=== PATIENT | female | born 1995 | race Caucasian/White ===

== ENCOUNTER 2021-01-10 12:55 | Emergency (ER) | payer OTHER, SELFPAY ==
[2021-01-10 13:26] VITALS: BP 118/69; PULSE 80; RESP 16; TEMP 37; O2SAT 100
[2021-01-10] MEDS: SODIUM CHLORIDE 0.9% 1,000 ML 1000 ML IV (16:13)
[2021-01-10 16:16] LABS: Add Manual Diff / Slide Review NO; Basophils Absolute Auto 0 /uL (0-100); Basophils Percent Auto 0.2 % (0-2); Eosinophils Absolute Auto 100 /uL (0-450); Eosinophils Percent Auto 0.8 % (2-4); Hematocrit 37.8 % (36-46); Hemoglobin 12.5 g/dL (12.0-16.0); Lymphocytes Absolute Auto 1600 /uL (1100-4500); Lymphocytes Percent Auto 19.9 % (25-40); Mean Corpuscular HGB Conc 33.1 % (30-36); Mean Corpuscular Hemoglobin 29.7 PG (26-34); Mean Corpuscular Volume 89.8 fL (80-100); Monocytes Absolute Auto 600 /uL (0-900); Monocytes Percent Auto 7.9 % (3-14); Neutrophils Absolute Auto 5700 /uL (1500-7000); Neutrophils Percent Auto 71.2 % (50-75); Platelet Count 157 X10^3/uL (150-400); Red Blood Cell Count 4.21 X10^6/uL (4.0-5.2); Red Cell Distribution Width 12.9 % (11.6-14.8)
[2021-01-10 16:28] LABS: Alanine Aminotransferase 13 IU/L (<35); Albumin Globulin Ratio 1.4 (1.0-2.8); Alkaline Phosphatase 45 U/L (38-126); Aspartate Aminotransferase 26 IU/L (14-36); Bilirubin Total 0.2 mg/dL (0.2-1.3); Blood Urea Nitrogen 8 mg/dL (7-17); Calcium 8.6 mg/dL (8.4-10.2); Carbon Dioxide 26 mmol/L (22-32); Chloride 103 mmol/L (98-107); Estimated Glomerular Filt Rate > 60.0 mL/min (>60); Globulin 2.8 g/dL (1.7-4.1); Glucose 93 mg/dL (70-100); HEMOLYSIS < 15 (0-50); Lipase 128 U/L (23-300); Sodium 136 mmol/L (137-145); Total Protein 6.8 g/dL (6.3-8.2)
--- NOTE | 2021-01-10 17:07 | ED_ITS ---
HPI - Nausea/Vomiting/Diarrhea General Chief complaint: Nausea/Vomiting/Diarrhea Stated complaint: 9 Wks Preg, Can't Keep Food Down Time Seen by Provider: 01/10/21 14:08 Source: patient Mode of arrival: Ambulatory Limitations: no limitations History of Present Illness HPI Narrative: This is a 25-year-old female comes emergency department complaint of nausea and vomiting and diarrhea after she eats food. Patient states she is 9 weeks . She has had 6 positive test at home as well as a positive test at [facility]. Patient has not had any additional care thus far. Patient denies any medical issues. She was on omeprazole regularly but her prescription ran out and she has not refilled it. She has had reflux in the past and now that she is off her medication this seems worse as well. Patient is not taking any other regular medications. No prior surgeries. No allergies to medications. No tobacco, alcohol or illicit. Patient notes she has felt nauseated she occasionally has vomiting but not constantly. It is worse in the evenings. Patient notes that she has diarrhea immediately after eating she has not had any black or bloody stools. She denies any abdominal p ain, pelvic pain or cramping. No vaginal bleeding or discharge. No dysuria sense of urgency. She has had some mild frequency. Related Data Home Medications Medication Instructions Recorded Confirmed 139-iron 33 mg-folic ac 1 pkg PO DAILY 01/10/21 01/10/21 800 mcg tablet and dha 350 mg capsule ([facility] ) Previous Rx's Medication Instructions Recorded cimetidine 200 mg tablet 200 mg PO .qday #30 tab 01/10/21 ondansetron 4 mg disintegrating 4 mg PO Q6H PRN #10 tab 01/10/21 tablet Allergies Allergy/AdvReac Type Severity Reaction Status Date / Time amoxicillin Allergy Severe Anaphylaxis Verified 01/10/21 13:30 Penicillins Allergy Severe Anaphylaxis Verified 01/10/21 13:30 Review of Systems Review of Systems ROS Unobtainable: All systems reviewed & are unremarkable except as noted in HPI and below Patient History Social History Smoking Status: Former smoker Smoking Status: Former smoker alcohol intake frequency: 0-2 drinks per day Substance Use Type: does not use Exam Narrative Exam Narrative: GENERAL: Alert and oriented x three, Well-nourished female in mild distress. HEENT: Head normocephalic, atraumatic, EOMI, pupils reactive, face symmetric, moist mucous membranes NECK: Supple, full range of motion CARDIOVASCULAR: Regular rate and rhythm without murmurs, rubs or gallops. RESPIRATORY: Breath sounds equal bilaterally, no wheezes rales or rhonchi. ABDOMEN: Soft, nontender. Normoactive bowel sounds all 4 quadrants. No guarding or rebound, rigidity, no mass. Nondistended. : No CVA tenderness EXTREMITIES: Normal range of motion, no clubbing or edema. Neurovascularly intact NEUROLOGICAL: Cranial nerves II through XII grossly intact. Moving all extremities SKIN: Warm, dry, no petechiae, no rashes or lesions. Initial Vital Signs Initial Vital Signs: Vital Signs Temperature 98.6 F 01/10/21 13:26 Pulse Rate 80 01/10/21 13:26 Respiratory Rate 16 01/10/21 13:26 Blood Pressure 118/69 01/10/21 13:26 Pulse Oximetry 100 01/10/21 13:26 Course Orders Ordered: ED Orders 01/10/21 15:56 Complete Blood Count AUTO DIFF Stat Comprehensive Metabolic Panel Stat HCG Quantitative /Beta subunit Stat Lipase Stat Discontinued Medications Sodium Chloride (Normal Saline 0.9%) 1,000 mls @ 1,000 mls/hr IV BOLUS ONE Stop: 01/10/21 14:31 Last Infusion: 01/10/21 17:47 Dose: 0 mls/hr Documented by: Admin: 01/10/21 16:13 Dose: 1,000 mls/hr Documented by: SHONDA Ondansetron HCl (Ondansetron 4 Mg/2 Ml Inj) 4 mg IV NOW ONE Stop: 01/10/21 13:33 Last Admin: 01/10/21 16:11 Dose: Not Given Documented by: SHONDA Vital Signs Vital signs: Vital Signs - 8 hr 01/10/21 13:26 01/10/21 17:39 01/10/21 17:51 Temperature 98.6 F Pulse Rate 80 60 60 Respiratory Rate 16 16 18 Blood Pressure 118/69 99/56 L 98/57 L Pulse Oximetry 100 100 100 MDM - Nausea/Vomiting/Diarrhea Lab Data Result diagrams: 01/10/21 15:56 01/10/21 15:56 Labs: Lab Results 01/10/21 01/10/21 01/10/21 Range/Units 15:56 15:56 15:56 WBC 8.0 (4.5-11.0) X10^3/uL RBC 4.21 (4.0-5.2) X10^6/uL Hgb 12.5 (12.0-16.0) g/dL Hct 37.8 (36-46) % MCV 89.8 (80-100) fL MCH 29.7 (26-34) PG MCHC 33.1 (30-36) % RDW 12.9 (11.6-14.8) % Plt Count 157 (150-400) X10^3/uL Neut % (Auto) 71.2 (50-75) % Lymph % (Auto) 19.9 L (25-40) % [place] % (Auto) 7.9 (3-14) % Eos % (Auto) 0.8 L (2-4) % Baso % (Auto) 0.2 (0-2) % Neut # (Auto) 5700 (6094-5529) /uL Lymph # (Auto) 1600 (8524-3701) /uL [place] # (Auto) 600 (0-900) /uL Eos # (Auto) 100 (0-450) /uL Baso # (Auto) 0 (0-100) /uL Sodium 136 L (137-145) mmol/L Potassium 4.0 (3.4-5.1) mmol/L Chloride 103 (98-107) mmol/L Carbon Dioxide 26 (22-32) mmol/L BUN 8 (7-17) mg/dL Creatinine 0.42 L (0.52-1.04) mg/dL Estimated GFR > 60.0 (>60) mL/min BUN/Creatinine Ratio 19.0 (6-22) Glucose 93 (70-100) mg/dL Calcium 8.6 (8.4-10.2) mg/dL Total Bilirubin 0.2 (0.2-1.3) mg/dL AST 26 (14-36) IU/L ALT 13 (<35) IU/L Alkaline Phosphatase 45 (38-126) U/L Total Protein 6.8 (6.3-8.2) g/dL Albumin 4.0 (3.5-5.0) g/dL Globulin 2.8 (1.7-4.1) g/dL Albumin/Globulin Ratio 1.4 (1.0-2.8) Lipase 128 (23-300) U/L HCG, Quant [id number] mIU/mL Urine Dip Bedside Urine Glucose Negative Bedside Urine Bilirubin - Negative Bedside Urine Ketone - Negative Urine Specific [place] 1.010 Bedside Urine Occult Blood - Negative Bedside Urine pH 6.0 Bedside Urine Protein - Negative Bedside Urine Urobilinogen - Negative Bedside Urine Nitrite - Negative Bedside Urine Leukocytes - Negative Esterase MDM Narrative Medical decision making narrative: This is a 25-year-old with symptoms consistent with morning sickness. Patient's diarrhea seemed to occur almost immediately after eating. She has not had a cholecystectomy she has not had symptoms similar to this until she was . This might be hormonally related. She does not have any abdominal pain. She has any black or bloody stools. At this time I would image her her vitals are appropriate. Discussed with patient she did stop her omeprazole and this seems to be causing her current of some of her symptoms as well as her heartburn. We did check categories and cimetidine appears to be a more appropriate choice for her. Also discussed she can try carl, vitamin B6 [id number] and 0 days to try and if this is an adequate. Patient I discussed return precautions. She is feeling better after fluids. Her labs are reassuring. Her he hCG is cons istent with her . Urine does not show any signs of infection or other changes. Plan for patient to follow up with her care provider. Discharge Plan Departure Patient Disposition: Home Clinical Impression: Nausea and vomiting in prior to 22 weeks gestation Activity Restrictions/Additional Instructions: Follow up with your physician for your care in the next week. You may take Zofran 1 tablet as needed for nausea. discussed with your physician but he can try cimetidine for your 1 reflux. Tums are also safe during . Try small meals when you are less nauseated. Prescription to [facility]. Please return for fevers, persistent vomiting, lightheadedness or passing out, black or bloody stools, no abdominal pain, vaginal bleeding or other new or concerning symptoms. Prescriptions: New cimetidine 200 mg tablet 200 mg PO .qday Qty: 30 RF: 0 ondansetron 4 mg tablet,disintegrating 4 mg PO Q6H PRN (Reason: nausea and vomiting) Qty: 10 RF: 0 No Action Brainstrong 33 mg iron- 800 mcg-350 mg Combo Pack 1 pkg PO DAILY RF: 0
[2021-01-10 17:09] LABS: HCG Quantitative /Beta subunit 126500 mIU/mL
[2021-01-10 17:39] VITALS: BP 99/56; PULSE 60; RESP 16; O2SAT 100
[2021-01-10 17:51] VITALS: BP 98/57; PULSE 60; RESP 18; O2SAT 100
== END 2021-01-10 17:58 | disposition home or self-care (01) ==
PROVIDERS: Emergency Provider Emergency Medicine
DX: O21.9 Vomiting of pregnancy, unspecified (principal); O26.891 Other specified pregnancy related conditions, first trimester; R19.7 Diarrhea, unspecified; Z3A.09 9 weeks gestation of pregnancy
CPT/HCPCS: 36415; 80053; 81003; 83690; 84702; 85025; 96360; 96361; 99284

== ENCOUNTER → 2021-02-28 13:14 | Outpatient (CLI) | payer OTHER, SELFPAY ==
[2021-02-28 13:55] LABS: Add Manual Diff / Slide Review NO; Basophils Absolute Auto 0 /uL (0-100); Basophils Percent Auto 0.4 % (0-2); Eosinophils Absolute Auto 100 /uL (0-450); Eosinophils Percent Auto 0.6 % (2-4); Hematocrit 35.5 % (36-46); Hemoglobin 11.9 g/dL (12.0-16.0); Lymphocytes Absolute Auto 1400 /uL (1100-4500); Lymphocytes Percent Auto 14.8 % (25-40); Mean Corpuscular HGB Conc 33.7 % (30-36); Mean Corpuscular Hemoglobin 30.2 PG (26-34); Mean Corpuscular Volume 89.8 fL (80-100); Monocytes Absolute Auto 500 /uL (0-900); Monocytes Percent Auto 5.3 % (3-14); Neutrophils Absolute Auto 7700 /uL (1500-7000); Neutrophils Percent Auto 78.9 % (50-75); Platelet Count 133 X10^3/uL (150-400); Red Blood Cell Count 3.95 X10^6/uL (4.0-5.2); Red Cell Distribution Width 13.3 % (11.6-14.8); White Blood Cell Count 9.8 X10^3/uL (4.5-11.0)
[2021-02-28 13:59] LABS: Appearance Urine UA SL CLOUDY; Bilirubin Urine UA NEGATIVE (NEGATIVE); Color Urine UA YELLOW; Glucose Urine UA NEGATIVE (Negative); Ketones Urine UA NEGATIVE (NEGATIVE); Leukocyte Esterase Urine UA NEGATIVE (NEGATIVE); Nitrite Urine UA NEGATIVE (Negative); Occult Blood Urine UA NEGATIVE (Negative); Protein Urine UA NEGATIVE (Negative); Specific Gravity Urine UA 1.015 (1.000-1.035); Urobilinogen Urine UA 0.2 E.U./dL (0.2)
[2021-02-28 14:06] LABS: pH Urine UA 6.5 (4.5-8.0)
[2021-03-01 05:36] LABS: RPR Screen Non Reactive (Non Reactive)
[2021-03-01 09:38] LABS: Varicella IgG Antibody 403 index (Immune >165)
[2021-03-03 15:37] LABS: Hepatitis B Surface Antigen NEGATIVE s/c (NEGATIVE); Rubella Antibody IgG 11.1 IU/mL (>15)
[2021-03-03 15:56] LABS: HIV 1 & 2 Ab/Ag 4th Gen Combo NEGATIVE (NEGATIVE); Hep C Virus Ab w/Reflex Quant NEGATIVE s/c (NEGATIVE)
[2021-03-03 21:07] LABS: AFP, Serum 33.7 ng/mL (.); Calc Gestational Age Ultrasound (.); Estriol, Free 1.07 ng/mL (.); Inhibin A, MoM 0.51 (.); Maternal Ethnicity Caucasian (.); Maternal Weight 133 lbs (.); Number of Fetuses No (.); OSBR Risk 1 IN 10000 (.); Results Report (.); Test Results *Screen Negative* (.); hCG, MoM 1.41 (.); hCG, Serum 35224 mIU/mL (.)
[2021-03-06 08:21] LABS: CF Result NEGATIVE
== END ==
PROVIDERS: Referring Provider Family Medicine; Visit Provider Family Medicine
DX: Z34.81 Encounter for supervision of other normal pregnancy, first trimester (principal); Z13.228 Encounter for screening for other metabolic disorders; Z3A.16 16 weeks gestation of pregnancy
CPT/HCPCS: 36415; 80055; 81003; 81223; 82105; 82677; 84702; 86336; 86787; 86803; 86850; 86900; 86901; 87086; 87389

== ENCOUNTER → 2021-03-26 10:32 | Outpatient (CLI) | payer OTHER, SELFPAY ==
--- NOTE | 2021-03-26 10:35 | DI.US.S_ITS ---
PROCEDURE: US OB >= 14 WEEKS FETUS INDICATIONS: ANATOMY OUTSIDE/PRIOR DATING DATA: Last menstrual period (LMP): 11/06/2020 . LMP-based estimated date of delivery (MALIA): 08/13/2021 . First dating scan (date and location): 03/26/2021 . Estimated date of delivery (MALIA) from first dating scan: 08/15/2021 . TECHNIQUE: Real-time scanning was performed of the fetus, with image documentation and biometric measurements. Endovaginal scanning: No COMPARISON: None. FINDINGS: General: A single living intrauterine gestation is present. Presentation: Vertex Placenta: Placental position is anterior , without previa. Lower placental edge 2 cm or less from internal cervical os qualifies as low lying placenta. Amniotic fluid index: 15.6 cm, normal range is 5-24 cm. heart rate: 153 beats per minute. Maternal cervical canal: 3.9 cm long. Normal lower limit is 2.5 cm. biometrics: Biparietal diameter: 47 mm; 20 weeks 0 days Head circumference: 170 mm; 19 weeks 4 days Abdominal circumference: 146 mm; 20 weeks 0 days Femur length: 29 mm; 19 weeks 0 days Estimated gestational age from initial scan: not applicable. Composite gestational age from present scan: 19 weeks 5 days Estimated weight and percentile: 299 g Measurement variability for biometric dating: +/- 7 days from 14 weeks to 15 weeks 6 days gestation, +/- 10 days from 16 weeks to 21 weeks 6 days gestation, +/- 2 weeks from 22 weeks to 27 weeks 6 days gestation, +/- 3 weeks for 28 weeks gestation or later. weight reference: 4500 g or EFW >90/95% is considered macrosomia or large for gestational age. EFW <10% is small for gestational age. EFW 5% or less is considered intra-uterine growth restriction. Anatomic survey: Neuro: Ventricles are non-dilated at less than 10 mm. Cisterna magna is normal at 3-11 mm. Cerebellum is normal in size and morphology. Nuchal skin fold: Normal at less than 6 mm between 14-21 weeks gestational age. Face: Nose and lips, facial profile are normal. Spine: No evidence for spina bifida. Heart: 4-chambered heart is present, with normal ventricular outflow tracts. Diaphragm: Diaphragm is intact. Stomach: Left-sided stomach is present. Kidneys: No hydronephrosis. Normal is less than 5 mm in 2nd trimester, less than 7 mm in 3rd trimester. Cord: 3-vessel cord has orthotopic insertion. Bladder: Normal in size. Extremities: All 4 extremities identified. IMPRESSION: 1. Single living intrauterine gestation. 2. Normal survey of anatomy. Dictated by: Tiara Romero M.D. on 03/26/2021 at 12:30 Approved by: Tiara Romero M.D. on 03/26/2021 at 15:56
== END ==
PROVIDERS: Referring Provider Family Medicine; Visit Provider Family Medicine
DX: Z34.90 Encounter for supervision of normal pregnancy, unspecified, unspecified trimester (principal); Z3A.20 20 weeks gestation of pregnancy
CPT/HCPCS: 76811

== ENCOUNTER 2021-05-10 14:58 | Emergency (ER) | payer OTHER, SELFPAY ==
[2021-05-10 15:06] VITALS: BP 136/65; PULSE 89; RESP 16; TEMP 36.4; O2SAT 99; BMI 26.2
--- NOTE | 2021-05-10 15:35 | ED.NAVMDI ---
HPI - Nausea/Vomiting/Diarrhea General Chief complaint: Abdominal Pain Stated complaint: havent been able to keep food in since yesterday Time Seen by Provider: 05/10/21 15:32 Source: patient Mode of arrival: Ambulatory History of Present Illness HPI Narrative: The patient is currently 26 weeks . She developed diarrhea yesterday. Diarrhea persists. She has no nausea or vomiting. She denies abdominal cramping. She denies fever chills. She has no urinary complaints. She is concerned about decreased motion. She has no vaginal bleeding, no contraction pains. She ate out 2 days ago, perhaps the reason for the diarrhea. She has not been around others with similar medical problems. She has no chronic GI or issues. Related Data Home Medications Medication Instructions Recorded Confirmed 139-iron 33 mg-folic ac 1 pkg PO DAILY 01/10/21 01/10/21 800 mcg tablet and dha 350 mg capsule ([facility] ) Previous Rx's Medication Instructions Recorded cimetidine 200 mg tablet 200 mg PO .qday #30 tab 01/10/21 ondansetron 4 mg disintegrating 4 mg PO Q6H PRN #10 tab 01/10/21 tablet Allergies Allergy/AdvReac Type Severity Reaction Status Date / Time amoxicillin Allergy Severe Anaphylaxis Verified 05/10/21 15:08 Penicillins Allergy Severe Anaphylaxis Verified 05/10/21 15:08 Review of Systems Constitutional Constitutional: Reports as per HPI, Denies chills, Denies fever(s) and Denies headache(s) ENT Ears, Nose, Mouth, and Throat: Denies dizziness and Denies headache(s) Cardiovascular Cardiovascular: Denies chest pain, Denies rapid heart rate and Denies dyspnea Respiratory Respiratory: Denies chest congestion, Denies cough and Denies dyspnea Gastrointestinal Gastrointestinal: Reports as per HPI Genitourinary Genitourinary: Denies dysuria and Denies urinary urgency Comments: No vaginal bleeding. Musculoskeletal Comments: No lower extremity edema. Neurologic Neurologic: Denies confusion, Denies dizziness and Denies headache(s) Psychiatric Psychiatric: Denies confusion Patient History Medical History Anxiety (~2017) Chronic GERD (~2010) Frequent headaches (~12/2020) Hemorrhoid (~2018) Surgical History Anesthesia H/O hemorrhoidectomy (~06/2019) History of colonoscopy (~08/2019) History of esophagogastroduodenoscopy (EGD) (~08/2019) [place] teeth extracted (~2017) Family History Father No problems noted. Mother Breast cancer Cancer Grandfather No problems noted. Grandmother Family estrangement Grandfather No problems noted. Grandmother No problems noted. Sister No problems noted. Social History marital status: household members: spouse lives independently: Yes pets and animals: Yes (Dog X 1) education level: college (BA in [employer] and [employer]) occupational status: unemployed current occupational exposures/hazards: No special samson needs: No Smoking Status: Former smoker second hand exposure: No alcohol intake: former (pre- : 0-2 drinks/day) substance use type: does not use Type(s) of exercise: regular exercise frequency: 3-4 times per week Smoking Status: Former smoker alcohol intake frequency: 0-2 drinks per day Substance Use Type: does not use Exam Initial Vital Signs Initial Vital Signs: Vital Signs Temperature 97.5 F L 05/10/21 15:06 Pulse Rate 89 05/10/21 15:06 Respiratory Rate 16 05/10/21 15:06 Blood Pressure 136/65 05/10/21 15:06 Pulse Oximetry 99 05/10/21 15:06 Const General: cooperative, healthy appearing and comfortable [facility] Head: normal to inspection, normocephalic and atraumatic Mouth: oral mucosae normal Throat: posterior oropharynx normal Resp Auscultation: clear to auscultation bilaterally Cardio Rate: regular rate Rhythm: regular rhythm Heart Sounds: S1 normal, S2 normal and no murmurs GI Palpation: soft and No tender Auscultation: normal bowel sounds Other: Gravid. Uterus is consistent with 26 weeks, and nontender. motion is detected with palpation. FHT 147. Back/Spine/Pelvis Back: No CVA tenderness Course Course Course Narrative: The patient has received IV hydration. Her labs are reassuring. She is hydrated. heart tones are normal. Orders Ordered: ED Orders 05/10/21 15:44 Complete Blood Count AUTO DIFF Stat Comprehensive Metabolic Panel Stat Stool Culture Stat 05/10/21 15:45 Urinalysis and Microscopic Stat Discontinued Medications Sodium Chloride (Normal Saline 0.9%) 1,000 mls @ 1,000 mls/hr IV BOLUS ONE Stop: 05/10/21 16:43 Last Admin: 05/10/21 15:58 Dose: 1,000 mls/hr Documented by: Vital Signs Vital signs: Vital Signs - 8 hr 05/10/21 15:06 Temperature 97.5 F L Pulse Rate 89 Respiratory Rate 16 Blood Pressure 136/65 Pulse Oximetry 99 MDM - Nausea/Vomiting/Diarrhea Lab Data Result diagrams: 05/10/21 15:50 05/10/21 15:50 Labs: Lab Results 05/10/21 05/10/21 05/10/21 Range/Units 15:45 15:50 15:50 WBC 7.6 (4.5-11.0) X10^3/uL RBC 3.99 L (4.0-5.2) X10^6/uL Hgb 12.0 (12.0-16.0) g/dL Hct 35.9 L (36-46) % MCV 90.0 (80-100) fL MCH 30.2 (26-34) PG MCHC 33.6 (30-36) % RDW 12.6 (11.6-14.8) % Plt Count 160 (150-400) X10^3/uL Neut % (Auto) 72.4 (50-75) % Lymph % (Auto) 16.9 L (25-40) % [place] % (Auto) 9.6 (3-14) % Eos % (Auto) 1.0 L (2-4) % Baso % (Auto) 0.1 (0-2) % Neut # (Auto) 5500 (4931-8350) /uL Lymph # (Auto) 1300 (0741-2804) /uL [place] # (Auto) 700 (0-900) /uL Eos # (Auto) 100 (0-450) /uL Baso # (Auto) 0 (0-100) /uL Sodium 136 L (137-145) mmol/L Potassium 4.2 (3.4-5.1) mmol/L Chloride 103 (98-107) mmol/L Carbon Dioxide 26 (22-32) mmol/L BUN 6 L (7-17) mg/dL Creatinine 0.55 (0.52-1.04) mg/dL Estimated GFR > 60.0 (>60) mL/min BUN/Creatinine Ratio 10.9 (6-22) Glucose 85 (70-100) mg/dL Calcium 8.5 (8.4-10.2) mg/dL Total Bilirubin 0.3 (0.2-1.3) mg/dL AST 29 (14-36) IU/L ALT 20 (<35) IU/L Alkaline Phosphatase 65 (38-126) U/L Total Protein 6.9 (6.3-8.2) g/dL Albumin 4.0 (3.5-5.0) g/dL Globulin 2.9 (1.7-4.1) g/dL Albumin/Globulin Ratio 1.4 (1.0-2.8) Urine Color Yellow Urine Appearance Clear Urine pH 7.0 (4.5-8.0) Ur Specific [place] 1.015 (1.000-1.035) Urine Protein Negative (Negative) Urine Glucose (UA) Negative (Negative) g/dL Urine Ketones Negative (NEGATIVE) Urine Occult Blood Negative (Negative) Urine Nitrate Negative (Negative) Urine Bilirubin Negative (NEGATIVE) Urine Urobilinogen 0.2 (0.2) E.U./dL Ur Leukocyte Esterase Negative (NEGATIVE) Urine RBC 0-1/hpf (0-5/HPF) Urine WBC 5-10/hpf H (0-5/HPF) Ur Squamous Epith Cells 10-30 /hpf H (0-5/HPF) Urine Bacteria Many (>30) H (None) Ur Culture Indicated? Cult not indicated Discharge Plan Departure Patient Disposition: Home Clinical Impression: Diarrhea Qualifiers: Diarrhea type: unspecified type Qualified Code(s): R19.7 - Diarrhea, unspecified Qualifiers: Weeks of gestation: 26 weeks Qualified Code(s): Z3A.26 - 26 weeks gestation of Instructions: Diarrhea Activity Restrictions/Additional Instructions: Your baby is doing well. For the diarrhea, be sure drinking plenty of fluids. You should be on a bland diet. Expect the diarrhea to resolve. If not improved within 72 hours, follow-up with your doctor or return here. Prescriptions: No Action Brainstrong 33 mg iron- 800 mcg-350 mg Combo Pack 1 pkg PO DAILY RF: 0 cimetidine 200 mg tablet 200 mg PO .qday Qty: 30 RF: 0 ondansetron 4 mg tablet,disintegrating 4 mg PO Q6H PRN (Reason: nausea and vomiting) Qty: 10 RF: 0 Referrals: Miscellaneous,Doctor, MD [Primary Care Provider] -
[2021-05-10] MEDS: SODIUM CHLORIDE 0.9% 1,000 ML 1000 ML IV (15:58)
[2021-05-10 16:08] LABS: Appearance Urine UA CLEAR; Bilirubin Urine UA NEGATIVE (NEGATIVE); Color Urine UA YELLOW; Glucose Urine UA NEGATIVE (Negative); Ketones Urine UA NEGATIVE (NEGATIVE); Leukocyte Esterase Urine UA NEGATIVE (NEGATIVE); Nitrite Urine UA NEGATIVE (Negative); Occult Blood Urine UA NEGATIVE (Negative); Protein Urine UA NEGATIVE (Negative); Specific Gravity Urine UA 1.015 (1.000-1.035); Urobilinogen Urine UA 0.2 E.U./dL (0.2)
[2021-05-10 16:10] LABS: Add Manual Diff / Slide Review NO; Basophils Absolute Auto 0 /uL (0-100); Basophils Percent Auto 0.1 % (0-2); Eosinophils Absolute Auto 100 /uL (0-450); Hematocrit 35.9 % (36-46); Lymphocytes Absolute Auto 1300 /uL (1100-4500); Lymphocytes Percent Auto 16.9 % (25-40); Mean Corpuscular HGB Conc 33.6 % (30-36); Mean Corpuscular Hemoglobin 30.2 PG (26-34); Monocytes Absolute Auto 700 /uL (0-900); Monocytes Percent Auto 9.6 % (3-14); Neutrophils Absolute Auto 5500 /uL (1500-7000); Neutrophils Percent Auto 72.4 % (50-75); Platelet Count 160 X10^3/uL (150-400); Red Blood Cell Count 3.99 X10^6/uL (4.0-5.2); Red Cell Distribution Width 12.6 % (11.6-14.8); White Blood Cell Count 7.6 X10^3/uL (4.5-11.0)
[2021-05-10 16:17] LABS: Alanine Aminotransferase 20 IU/L (<35); Albumin Globulin Ratio 1.4 (1.0-2.8); Alkaline Phosphatase 65 U/L (38-126); Aspartate Aminotransferase 29 IU/L (14-36); BUN Creatinine Ratio 10.9 (6-22); Bilirubin Total 0.3 mg/dL (0.2-1.3); Blood Urea Nitrogen 6 mg/dL (7-17); Calcium 8.5 mg/dL (8.4-10.2); Carbon Dioxide 26 mmol/L (22-32); Chloride 103 mmol/L (98-107); Estimated Glomerular Filt Rate > 60.0 mL/min (>60); Globulin 2.9 g/dL (1.7-4.1); Glucose 85 mg/dL (70-100); HEMOLYSIS < 15 (0-50); Potassium 4.2 mmol/L (3.4-5.1); Sodium 136 mmol/L (137-145); Total Protein 6.9 g/dL (6.3-8.2)
[2021-05-10 16:22] LABS: RBC Urine 0-1/HPF (0-5/HPF); Squamous Epithelial Cell Urine 10-30 /HPF (0-5/HPF); WBC Urine 5-10/HPF (0-5/HPF)
[2021-05-10 16:23] LABS: Bacteria Urine Many (>30); Culture Indicated Urine Cult Not Indicated
[2021-05-10 17:20] VITALS: BP 98/53; PULSE 88; RESP 16; O2SAT 100
== END 2021-05-10 17:21 | disposition home or self-care (01) ==
PROVIDERS: Emergency Provider Emergency Medicine
DX: O26.892 Other specified pregnancy related conditions, second trimester (principal); R19.7 Diarrhea, unspecified; Z3A.26 26 weeks gestation of pregnancy
CPT/HCPCS: 36415; 80053; 81001; 85025; 96360; 99284

== ENCOUNTER → 2021-05-22 10:07 | Outpatient (CLI) | payer OTHER, SELFPAY ==
[2021-05-22 12:56] LABS: Add Manual Diff / Slide Review NO; Basophils Absolute Auto 0 /uL (0-100); Basophils Percent Auto 0.3 % (0-2); Eosinophils Absolute Auto 100 /uL (0-450); Eosinophils Percent Auto 0.7 % (2-4); Hematocrit 32.7 % (36-46); Hemoglobin 10.8 g/dL (12.0-16.0); Lymphocytes Absolute Auto 1200 /uL (1100-4500); Lymphocytes Percent Auto 15.3 % (25-40); Mean Corpuscular HGB Conc 33.2 % (30-36); Mean Corpuscular Hemoglobin 30.1 PG (26-34); Mean Corpuscular Volume 90.6 fL (80-100); Monocytes Absolute Auto 500 /uL (0-900); Monocytes Percent Auto 6.4 % (3-14); Neutrophils Absolute Auto 6200 /uL (1500-7000); Neutrophils Percent Auto 77.3 % (50-75); Platelet Count 133 X10^3/uL (150-400); Red Cell Distribution Width 12.4 % (11.6-14.8)
[2021-05-22 13:19] LABS: GTT (PREG) 1 Hour PP 50gm Dose 148 mg/dL (76-139)
== END ==
PROVIDERS: Referring Provider Family Medicine; Visit Provider Family Medicine
DX: Z34.90 Encounter for supervision of normal pregnancy, unspecified, unspecified trimester (principal)
CPT/HCPCS: 36415; 82950; 85025

== ENCOUNTER → 2021-06-02 08:07 | Outpatient (CLI) | payer OTHER, SELFPAY ==
[2021-06-02 09:37] LABS: Glucose Fasting Gestational 76 mg/dL (76-95)
[2021-06-02 11:33] LABS: Glucose Tol Interp,Gestational INTERPRETATION
[2021-06-02 12:04] LABS: Glucose 1 Hour Gest 171 mg/dL (76-180)
[2021-06-02 12:05] LABS: Glucose 2 Hour Gest 127 mg/dL (76-155)
[2021-06-02 13:15] LABS: Glucose 3 Hour Gest 92 mg/dL (76-140)
== END ==
PROVIDERS: Referring Provider Family Medicine; Visit Provider Family Medicine
DX: R73.09 Other abnormal glucose (principal); Z3A.26 26 weeks gestation of pregnancy
CPT/HCPCS: 36415; 82951; 82952

== ENCOUNTER 2021-06-17 15:28 | Observation (INO) | payer OTHER, SELFPAY ==
[2021-06-17] MEDS: PANTOPRAZOLE DR 20 MG TABLET PO (16:19)
--- NOTE | 2021-06-17 16:52 | DI.US.S_ITS ---
PROCEDURE: US OB TRANSVAGINAL INDICATIONS: cervical length OUTSIDE/PRIOR DATING DATA: Last menstrual period (LMP): 11/06/2020 LMP-based estimated date of delivery (MALIA): 08/23/2021 First dating scan (date and location): 03/26/2021 Estimated date of delivery (MALIA) from first dating scan: 08/15/2021 The calculations are made using the study generated MALIA of 08/15/2021. TECHNIQUE: Real-time scanning was performed of the fetus, with image documentation. COMPARISON: [facility], US, US OB >= 14 WEEKS FETUS, 03/26/2021, 10:46. FINDINGS: A single living intrauterine gestation is present. Presentation: Vertex Placenta: Placental position is anterior, without previa. Amniotic fluid index: 12.5 cm, normal range is 5-24 cm. Single deepest vertical pocket is 4.6 cm. heart rate: 139 beats per minute. Maternal cervical canal: 1.1 cm long. Normal lower limit is 2.5 cm. Estimated gestational age from initial scan: 31 weeks, 4 days. IMPRESSION: 1. Single live intrauterine with fetus in vertex presentation. heart rate is 139 beats per minute. Normal amount of amniotic fluid. 2. Cervix is closed. Short cervical length measures 1.1 cm is seen with suggestion of funneling at internal os. Findings were reported to referring clinician by technical sales advisor at the time of the study. Dictated by: Shawn Killian M.D. on 06/17/2021 at 18:48 Approved by: Shawn Killian M.D. on 06/17/2021 at 18:50
[2021-06-17 17:06] LABS: Appearance Urine UA CLEAR; Bilirubin Urine UA NEGATIVE (NEGATIVE); Color Urine UA YELLOW; Glucose Urine UA NEGATIVE (Negative); Ketones Urine UA NEGATIVE (NEGATIVE); Leukocyte Esterase Urine UA NEGATIVE (NEGATIVE); Nitrite Urine UA NEGATIVE (Negative); Occult Blood Urine UA NEGATIVE (Negative); Protein Urine UA NEGATIVE (Negative); Urobilinogen Urine UA 0.2 E.U./dL (0.2)
[2021-06-17 18:01] LABS: Bacteria Urine Occasional (0-1); RBC Urine None Seen (0-5/HPF); Squamous Epithelial Cell Urine 1-5 /HPF (0-5/HPF); WBC Urine None Seen (0-5/HPF)
[2021-06-17 18:02] LABS: Culture Indicated Urine Cult Not Indicated
[2021-06-17] MEDS: NIFEdipine 10 MG CAPSULE PO ×4 (18:33→19:46)
[2021-06-17] MEDS: BETAMETHASONE 30 MG/5 ML MDV 12 MG IM (18:35)
[2021-06-17 18:49] LABS: Fetal Fibronectin Positive
[2021-06-17] MEDS: LACTATED RINGERS 1,000 ML 1000 ML IV (19:28)
[2021-06-17] MEDS: NIFEdipine 30 MG TAB ER PO (19:47)
[2021-06-17 20:06] LABS: COVID19 -Nasal RAPID Negative (Negative)
[2021-06-17] MEDS: LACTATED RINGERS 1,000 ML 125 ML IV (21:08)
[2021-06-17] MEDS: MAGNESIUM SULFATE 4 GM/100 ML PIGGYBACK IV (21:08)
--- NOTE | 2021-06-17 21:16 | PM.OBHP.IH.1 ---
OB HPI Date/Time Date of admission: 06/17/21 Date Patient Seen: 06/17/21 Time Patient Seen: 20:30 History of Present Condition Chief complaint: NST MALIA Calculator Estimated Delivery Date Method Current WG Current Estimate 08/13/21 Manual 31w 6d Final MALIA - ARIELLA Other Estimates 08/13/21 LMP (Certain) 31w 6d 08/17/21 Ultrasound #1 31w 2d Estimated Gestational Age (weeks): 31w6d : 1 Para: 0 Narrative: Pt is a 25yo at 31w6d who presented with abdominal cramping and tightening. The pt reports that for the past 2 days she has had a constant tightening across her upper abdomen. She has also had intermittent lower abdominal cramping. She thought it was just [place], but it was increasing in frequency and so she decided to be evaluated. She is unable to quantify how often the cramping is. She reports that due to the discomfort, she has not been eating much for the past couple days but has been trying to stay hydrated. Laying down does seem to help the discomfort. She denies any vaginal bleeding, LOF. She is feeling her baby move frequently, although it is slightly more difficult to tell due to the tightening. care: good care, initiated at week # (10) and pounds weight gain (29) Dating criteria OB: LMP confirmed by 1st trimester US Ultrasounds: normal 1st trimester US and normal mid trimester US Obstetrical complications: none Medical complications OB: none Preadmission Labs Last OB Lab Results: Blood Type O Positive 02/28/21 13:21 02/28/21 Antibody Screen Negative 02/28/21 13:21 02/28/21 Hematocrit 32.7 % (36-46) L 05/22/21 11:18 05/22/21 Hemoglobin 10.8 g/dL (12.0-16.0) L 05/22/21 11:18 05/22/21 Hepatitis B Surface Antigen Negative s/c (NEGATIVE) 02/28/21 13:21 02/28/21 Hepatitis C Antibody Negative s/c (NEGATIVE) 02/28/21 13:21 02/28/21 Rubella Antibody 11.1 IU/mL (>15) L 02/28/21 13:21 02/28/21 Varicella-Zoster IgG Antibody 403 index (Immune >165) 02/28/21 13:21 02/28/21 Glucose 1 Hour 148 mg/dL (76-139) H 05/22/21 11:18 05/22/21 Glucose Tolerance Testing: Fasting (76), 1 hr (171), 2 hr (127) and 3 hr (92) -: Urine: negative Genetic Screens: Quad screen: Normal External Labs -: Urine: negative Evaluation Evaluation Baseline heart rate: 150 Variability: Moderate (11-25) monitor accelerations: Present Monitor Decelerations: Absent Contraction Frequency (minutes): 3 Status: Category l Dilation (cm): 2 Effacement (%): 80 station: -2 PFS Medical History Anxiety (~2017) Chronic GERD (~2010) Frequent headaches (~12/2020) Hemorrhoid (~2018) Surgical History Anesthesia H/O hemorrhoidectomy (~06/2019) History of colonoscopy (~08/2019) History of esophagogastroduodenoscopy (EGD) (~08/2019) [place] teeth extracted (~2017) Family History Father No problems noted. Mother Breast cancer Cancer Grandfather No problems noted. Grandmother Family estrangement Grandfather No problems noted. Grandmother No problems noted. Sister No problems noted. Social History marital status: household members: spouse lives independently: Yes pets and animals: Yes (Dog X 1) education level: college (BA in [employer] and [employer]) occupational status: unemployed current occupational exposures/hazards: No special samson needs: No Smoking Status: Never smoker second hand exposure: No alcohol intake: former (pre- : 0-2 drinks/day) substance use type: does not use Type(s) of exercise: regular exercise frequency: 3-4 times per week Meds Home Medications and Allergies Home Medications Medication Instructions Recorded Confirmed Type cimetidine 200 mg tablet 200 mg PO .qday #30 tab 01/10/21 Rx ondansetron 4 mg disintegrating 4 mg PO Q6H PRN #10 tab 01/10/21 Rx tablet 139-iron 33 mg-folic ac 1 pkg PO DAILY 01/10/21 01/10/21 History 800 mcg tablet and dha 350 mg capsule (Brainstron ) breast pump #1 ea 05/28/21 05/28/21 Rx omeprazole 20 mg capsule,delayed 20 mg PO DAILY #90 cap 06/17/21 Rx release Allergies Allergy/AdvReac Type Severity Reaction Status Date / Time amoxicillin Allergy Severe Anaphylaxis Verified 05/10/21 15:08 Penicillins Allergy Severe Anaphylaxis Verified 05/10/21 15:08 OB Exam Narrative Exam Narrative: Gen: NAD, sitting comfortably in bed, appears well CV: RRR, no murmurs Resp: clear to auscultation bilaterally Abd: soft, nontender, gravid Ext: no edema Objective Imaging US: Radiologist's impression: PROCEDURE:? US OB TRANSVAGINAL ? INDICATIONS:? cervical length ? OUTSIDE/PRIOR DATING DATA:? Last menstrual period (LMP):? 11/06/2020 LMP-based estimated date of delivery (MALIA):? 08/23/2021 First dating scan (date and location):? 03/26/2021 Estimated date of delivery (MALIA) from first dating scan:? 08/15/2021 The calculations are made using the study generated MALIA of 08/15/2021. ? TECHNIQUE: Real-time scanning was performed of the fetus, with image documentation.? ? COMPARISON:? [facility], OB >= 14 WEEKS FETUS, 03/26/2021, 10:46. ? FINDINGS:? A single living intrauterine gestation is present.? Presentation:? Vertex Placenta:? Placental position is anterior, without previa.? Amniotic fluid index:? 12.5 cm, normal range is 5-24 cm. Single deepest vertical pocket is 4.6 cm.? ? heart rate:? 139 beats per minute.? Maternal cervical canal:? 1.1 cm long.? Normal lower limit is 2.5 cm.? Estimated gestational age from initial scan:? 31 weeks, 4 days. ? ? IMPRESSION:? 1. Single live intrauterine with fetus in vertex presentation.? heart rate is 139 beats per minute.? Normal amount of amniotic fluid. 2. Cervix is closed.? Short cervical length measures 1.1 cm is seen with suggestion of funneling at internal os. ? Findings were reported to referring clinician by blood bank laboratory technician at the time of the study.? ? ? Dictated by: Shawn Killian M.D. on 06/17/2021 at 18:48 ? ? Labs Labs: Laboratory Results - last 24 hr 06/17/21 06/17/21 06/17/21 16:30 17:10 19:20 Urine Color Yellow Urine Appearance Clear Urine pH 7.0 Ur Specific [place] 1.010 Urine Protein Negative Urine Glucose (UA) Negative Urine Ketones Negative Urine Occult Blood Negative Urine Nitrate Negative Urine Bilirubin Negative Urine Urobilinogen 0.2 Ur Leukocyte Esterase Negative Urine RBC None seen Urine WBC None seen Ur Squamous Epith Cells 1-5 /hpf D Urine Bacteria Occasional (0-1) D Ur Culture Indicated? Cult not indicated SARS-CoV-2 (PCR) Negative Fibronectin Positive H Assessment and Plan Assessment and Plan Assessment and Plan narrative: Pt is a 25yo at 31w6d here with evidence of labor. Cervical length 1.1cm on ultrasound, with suggestion of funneling. Cervical exam from closed to 2cm. The pt is Rh positive, GBS unknown. Her has been otherwise uncomplicated. - Betamethasone given at 18:11 - MgSO4 started due to < 32 weeks. 4g bolus given, followed by continuous at 2g/hr. - Vancomycin initiated for GBS prophylaxis due to unknown status. Pt with anaphylactic penicillin allergy. GBS sent today - pending. - Pt received 4 doses of 10mg PO Nifedipine in addition to 30 mg PO Nifedipine XR - Pt received 1L LR bolus - Pt is COVID negative Discussed case with Dr Lemus at [facility], who accepts pt for transfer. The pt will be transferred via [facility] for a higher level of care, including availability of NICU.
[2021-06-17] MEDS: MAGNESIUM SULFATE 20 GM/500 ML IV.SOLN IV (21:50)
[2021-06-17 21:55] VITALS: BP 119/62
[2021-06-17 22:13] LABS: Basophils Absolute Auto 100 /uL (0-100); Basophils Percent Auto 0.5 % (0-2); Eosinophils Absolute Auto 100 /uL (0-450); Eosinophils Percent Auto 0.7 % (2-4); Hematocrit 38.6 % (36-46); Hemoglobin 12.9 g/dL (12.0-16.0); Lymphocytes Absolute Auto 2000 /uL (1100-4500); Mean Corpuscular HGB Conc 33.5 % (30-36); Mean Corpuscular Hemoglobin 29.8 PG (26-34); Monocytes Absolute Auto 900 /uL (0-900); Monocytes Percent Auto 8.4 % (3-14); Neutrophils Absolute Auto 8100 /uL (1500-7000); Neutrophils Percent Auto 72.4 % (50-75); Platelet Count 172 X10^3/uL (150-400); Red Blood Cell Count 4.34 X10^6/uL (4.0-5.2); Red Cell Distribution Width 12.8 % (11.6-14.8); White Blood Cell Count 11.2 X10^3/uL (4.5-11.0)
[2021-06-17 22:20] LABS: Add Manual Diff / Slide Review SLIDE REVIEW
[2021-06-17] MEDS: VANCOMYCIN 1,500 MG/300 ML PIGGYBACK 200 MG IV (22:40)
[2021-06-17 22:50] LABS: Platelet Morphology Comment NOTE; RBC Morphology Normal Morphology
== END 2021-06-17 23:00 | disposition home or self-care (01) ==
PROVIDERS: Admitting Provider Family Medicine; Referring Provider Family Medicine; Visit Provider Family Medicine
DX: R10.2 Pelvic and perineal pain (principal); Z3A.31 31 weeks gestation of pregnancy; Z20.822 Contact with and (suspected) exposure to COVID-19
CPT/HCPCS: 36415; 59025; 59050; 76815; 76817; 81001; 82731; 85025; 87635; 96360; 96372; 99219; C9803; G0378; G0379; J0702; J3475

== ENCOUNTER 2021-06-26 11:11 | Observation (INO) | payer OTHER, SELFPAY ==
--- NOTE | 2021-06-26 11:24 | P.TNLD_ITS ---
Visit Information Visit Information Date of evaluation: 06/26/21 Primary OB Provider: Socorro Jennings Reason for Evaluation: Yes pre-term labor and Yes rule out labor Comments/Additional reasons for admission: 25yo at 33w1d here with contractions. The pt reports that last night she had abdominal tightening every 4 minutes for around 2.5 hours. She was then able to fall asleep. This morning, the tightening and cramping is more spaced apart, but still occurring. She denies any bleeding or LOF. The pt was hospitalized from 06/18-06/20 for contractions. Cervical length at that time was 1.1cm. She was treated with Nifedipine, and then MgSO4. Her contractions stopped, and her cervix remained unchanged at /-1. She was ultimately discharged home stable. [facility] Medical History Anxiety (~2017) Chronic GERD (~2010) Frequent headaches (~12/2020) Hemorrhoid (~2018) Surgical History Anesthesia H/O hemorrhoidectomy (~06/2019) History of colonoscopy (~08/2019) History of esophagogastroduodenoscopy (EGD) (~08/2019) [place] teeth extracted (~2017) Family History Father No problems noted. Mother Breast cancer Cancer Grandfather No problems noted. Grandmother Family estrangement Grandfather No problems noted. Grandmother No problems noted. Sister No problems noted. 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) occupational status: unemployed current occupational exposures/hazards: No special samson needs: No Smoking Status: Never smoker second hand exposure: No alcohol intake: former (pre- : 0-2 drinks/day) substance use type: does not use Type(s) of exercise: regular exercise frequency: 3-4 times per week Evaluation Evaluation Baseline heart rate: 135 Variability: Moderate (11-25) monitor accelerations: Present Monitor Decelerations: Absent Category of Tracing: Reactive Comments: single contraction on monitoring Diagnosis, Plan/Disposition Final Diagnosis (1) contractions: Status: Acute Plan/Disposition Plan: 25yo at 33w1d here with contractions. Pt recently hospitalized due to labor, which was stopped with Nifedipine and MgSO4. Pt felt more contractions overnight, now tapering off. Did treat with Nifedipine series again today. No longer having any significant contractions, felt by pt or on monitoring. Elected to not stimulate cervix, and no cervical exam today. U/A indicative of possible UTI, due to allergies will tx with Nitrofurantoin. Also discharge with PRN Nifedipine for home use. Discussed strict return precautions. OB Disposition: home
[2021-06-26] MEDS: ONDANSETRON 4 MG ODT SL (11:33)
[2021-06-26] MEDS: NIFEdipine 10 MG CAPSULE PO ×4 (11:57→12:58)
[2021-06-26 12:55] LABS: Appearance Urine UA CLEAR; Bilirubin Urine UA NEGATIVE (NEGATIVE); Color Urine UA YELLOW; Glucose Urine UA NEGATIVE (Negative); Ketones Urine UA NEGATIVE (NEGATIVE); Leukocyte Esterase Urine UA 2+ (NEGATIVE); Nitrite Urine UA NEGATIVE (Negative); Occult Blood Urine UA NEGATIVE (Negative); Protein Urine UA NEGATIVE (Negative); Urobilinogen Urine UA 0.2 E.U./dL (0.2)
[2021-06-26 13:02] LABS: Amorphous Sediment Urine 2+; Bacteria Urine Many (>30); Culture Indicated Urine Specimen Cultured; RBC Urine 0-1/HPF (0-5/HPF); Squamous Epithelial Cell Urine 1-5 /HPF (0-5/HPF); WBC Urine 10-30/HPF (0-5/HPF)
== END 2021-06-26 13:30 | disposition home or self-care (01) ==
PROVIDERS: Admitting Provider Family Medicine; Referring Provider Family Medicine; Visit Provider Family Medicine
DX: O60.03 Preterm labor without delivery, third trimester (principal); Z3A.32 32 weeks gestation of pregnancy
CPT/HCPCS: 59025; 81001; 87086; G0378; G0379

== ENCOUNTER → 2021-07-09 13:35 | Outpatient (CLI) | payer OTHER, SELFPAY ==
[2021-07-10 18:43] LABS: Strep Grp B PCR NEG for Grp B Strep
== END ==
PROVIDERS: Referring Provider Family Medicine; Visit Provider Family Medicine
DX: Z34.83 Encounter for supervision of other normal pregnancy, third trimester (principal); Z3A.35 35 weeks gestation of pregnancy
CPT/HCPCS: 87653

== ENCOUNTER 2021-07-16 14:17 | Outpatient (CLI) | payer OTHER, SELFPAY ==
--- NOTE | 2021-07-16 15:04 | PM.OBTRLD ---
Visit Information Visit Information Date of evaluation: 07/16/21 Primary OB Provider: Socorro eJnnings Reason for Evaluation: Yes rule out labor Comments/Additional reasons for admission: 25yo at 36w0d here for contractions. No vaginal bleeding, LOF. She is feeling her baby move regularly. [facility] Medical History Anxiety (~2017) Chronic GERD (~2010) Frequent headaches (~12/2020) Hemorrhoid (~2018) Surgical History Anesthesia H/O hemorrhoidectomy (~06/2019) History of colonoscopy (~08/2019) History of esophagogastroduodenoscopy (EGD) (~08/2019) [place] teeth extracted (~2017) Family History Father No problems noted. Mother Breast cancer Cancer Grandfather No problems noted. Grandmother Family estrangement Grandfather No problems noted. Grandmother No problems noted. Sister No problems noted. 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 Picking up on monitoring sporadically. Pt without significant cervical change in clinic, despite feeling all night. Suspect discomfort primarily due to very low station. Pt declines Nifedipine. Feels safe for d/c home. Would like to use her heating pad at home. OB Disposition: home
[2021-07-16] MEDS: NIFEdipine 10 MG CAPSULE PO (15:11)
== END 2021-07-16 15:40 | disposition home or self-care (01) ==
LOC: LABOR 15:16 → OB 07-22 07:27
PROVIDERS: Referring Provider Family Medicine; Visit Provider Family Medicine
DX: O47.03 False labor before 37 completed weeks of gestation, third trimester (principal); Z3A.36 36 weeks gestation of pregnancy
CPT/HCPCS: 59025; 59050; G0378; G0379

== ENCOUNTER 2021-07-21 01:47 | Inpatient (IN) | payer OTHER, SELFPAY ==
[2021-07-21] MEDS: LACTATED RINGERS 1,000 ML 100 ML IV (02:30)
[2021-07-21 02:36] LABS: COVID19 -Nasal RAPID Negative (Negative)
[2021-07-21] MEDS: fentaNYL 100 MCG/2 ML INJ (02:40)
[2021-07-21 03:03] LABS: Add Manual Diff / Slide Review NO; Basophils Absolute Auto 0 /uL (0-100); Basophils Percent Auto 0.4 % (0-2); Eosinophils Absolute Auto 100 /uL (0-450); Hematocrit 35.2 % (36-46); Hemoglobin 11.8 g/dL (12.0-16.0); Lymphocytes Absolute Auto 2600 /uL (1100-4500); Lymphocytes Percent Auto 22.1 % (25-40); Mean Corpuscular HGB Conc 33.5 % (30-36); Mean Corpuscular Hemoglobin 29.4 PG (26-34); Mean Corpuscular Volume 87.8 fL (80-100); Monocytes Absolute Auto 900 /uL (0-900); Monocytes Percent Auto 7.9 % (3-14); Neutrophils Absolute Auto 8200 /uL (1500-7000); Neutrophils Percent Auto 68.6 % (50-75); Platelet Count 151 X10^3/uL (150-400); Red Blood Cell Count 4.01 X10^6/uL (4.0-5.2); Red Cell Distribution Width 12.9 % (11.6-14.8)
--- NOTE | 2021-07-21 06:35 | PM.OBHP.IH.1 ---
OB HPI Date/Time Date of admission: 07/21/21 Date Patient Seen: 07/21/21 Time Patient Seen: 06:35 History of Present Condition Chief complaint: L&D MALIA Calculator Estimated Delivery Date Method Current WG Current Estimate 08/13/21 Manual 36w 5d Final MALIA - ARIELLA Other Estimates 08/13/21 LMP (Certain) 36w 5d 08/17/21 Ultrasound #1 36w 1d Estimated Gestational Age (weeks): 36w5d : 1 Para: 0 Narrative: 25yo at 36w5d here with leaking fluid starting around 1am. The pt reports onset of painful contractions shortly after. Mild vaginal spotting. She is feeling her baby move regularly. The pts was complicated by labor at 31w6d. She was on MgSO4, and received betamethasone on 06/17 and 06/18. Her labor was ultimately stopped, and she was discharged home. care: good care, initiated at week # and pounds weight gain Dating criteria OB: LMP confirmed by 1st trimester US Ultrasounds: normal 1st trimester US and normal mid trimester US Obstetrical complications: labor Medical complications OB: none Preadmission Labs Last OB Lab Results: Blood Type O Positive 07/21/21 02:15 07/21/21 Antibody Screen Negative 07/21/21 02:15 07/21/21 Hematocrit 35.2 % (36-46) L 07/21/21 02:15 07/21/21 Hemoglobin 11.8 g/dL (12.0-16.0) L 07/21/21 02:15 07/21/21 Hepatitis B Surface Antigen Negative s/c (NEGATIVE) 02/28/21 13:21 02/28/21 Hepatitis C Antibody Negative s/c (NEGATIVE) 02/28/21 13:21 02/28/21 Rubella Antibody 11.1 IU/mL (>15) L 02/28/21 13:21 02/28/21 Varicella-Zoster IgG Antibody 403 index (Immune >165) 02/28/21 13:21 02/28/21 Glucose 1 Hour 148 mg/dL (76-139) H 05/22/21 11:18 05/22/21 Group B Streptococcus (PCR) Neg for grp b strep 07/09/21 13:35 07/09/21 Glucose Tolerance Testing: Fasting (76), 1 hr (171), 2 hr (127) and 3 hr (92) -: Urine: negative Genetic Screens: Quad screen: Normal External Labs -: Urine: negative Evaluation Evaluation Baseline heart rate: 150 Variability: Moderate (11-25) monitor accelerations: Present Monitor Decelerations: Absent Contraction Frequency (minutes): 3 Status: Category l Dilation (cm): 10 Effacement (%): 100 station: +3 PFSH Medical History Anxiety (~2017) Chronic GERD (~2010) Frequent headaches (~12/2020) Hemorrhoid (~2018) Surgical History Anesthesia H/O hemorrhoidectomy (~06/2019) History of colonoscopy (~08/2019) History of esophagogastroduodenoscopy (EGD) (~08/2019) [place] teeth extracted (~2017) Family History Father No problems noted. Mother Breast cancer Cancer Grandfather No problems noted. Grandmother Family estrangement Grandfather No problems noted. Grandmother No problems noted. Sister No problems noted. 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) occupational status: unemployed current occupational exposures/hazards: No special samson needs: No Smoking Status: Never smoker second hand exposure: No alcohol intake: former (pre- : 0-2 drinks/day) substance use type: does not use Type(s) of exercise: regular exercise frequency: 3-4 times per week Meds Home Medications and Allergies Home Medications Medication Instructions Recorded Confirmed Type cimetidine 200 mg tablet 200 mg PO .qday #30 tab 01/10/21 Rx ondansetron 4 mg disintegrating 4 mg PO Q6H PRN #10 tab 01/10/21 Rx tablet 139-iron 33 mg-folic ac 1 pkg PO DAILY 01/10/21 01/10/21 History 800 mcg tablet and dha 350 mg capsule (Brainstrong ) breast pump #1 ea 05/28/21 05/28/21 Rx omeprazole 20 mg capsule,delayed 20 mg PO DAILY #90 cap 06/17/21 Rx release nitrofurantoin macrocrystal 100 mg 100 mg PO BID #10 cap 06/26/21 Rx capsule nifedipine 10 mg capsule 10 mg PO TID PRN #30 cap 06/30/21 Rx Allergies Allergy/AdvReac Type Severity Reaction Status Date / Time amoxicillin Allergy Severe Anaphylaxis Verified 05/10/21 15:08 Penicillins Allergy Severe Anaphylaxis Verified 05/10/21 15:08 OB Exam Narrative Exam Narrative: Gen: NAD, laying comfortably in bed, appears well CV: RRR, no murmurs Resp: clear to auscultation bilaterally Abd: soft, nontender, gravid Ext: no edema Objective Labs Result Diagrams: 07/21/21 02:15 Labs: Laboratory Results - last 24 hr 07/21/21 07/21/21 07/21/21 02:10 02:15 02:15 WBC 12.0 H RBC 4.01 Hgb 11.8 L Hct 35.2 L MCV 87.8 MCH 29.4 MCHC 33.5 RDW 12.9 Plt Count 151 Neut % (Auto) 68.6 Lymph % (Auto) 22.1 L [place] % (Auto) 7.9 Eos % (Auto) 1.0 L Baso % (Auto) 0.4 Neut # (Auto) 8200 H Lymph # (Auto) 2600 [place] # (Auto) 900 Eos # (Auto) 100 Baso # (Auto) 0 SARS-CoV-2 (PCR) Negative Blood Type O Positive Antibody Screen Negative Assessment and Plan Assessment and Plan Assessment and Plan narrative: 25yo at 36w5d here with SROM in active labor. GBS negative, Rh positive. complicated by labor, did receive betamethasone 06/17 and 06/18. - Expectant management, anticipate - Start pushing now - FHT reassuring - GBS negative, no prophylaxis indicated - Epidural for pain control in place
--- NOTE | 2021-07-21 18:43 | PM.OBPRVD ---
Events: Labor < 37 wks Labor & Delivery Delivery date: 07/21/21 Intrapartal Events: None Cervical ripening method: none Induction method: none Delivery monitor: external FHT Route of delivery: Episiotomy description: None L&D Laceration Description: Perineal - 1st Degree Delivery repair: chromic Estimated blood loss (mL): 400 Anesthesia Type: Epidural Complications: None Narrative: PROCEDURE: at 36w5d presented with SROM in active labor and was admitted to Labor and Delivery. The patient progressed through the 1st stage over 6 hours. Pain was controlled with an epidural. The patient progressed through the 2nd stage over 44 minutes and delivered a viable male with APGARs 6/9 at 7:40am via without complications. Tracing was Category I prior to pushing, and Category II at the end of pushing due to variable decels. The cord was clamped and cut after 5 minutes. The perineum and vagina were inspected with 1st degree perineal laceration repaired with 3-O Chromic. PREPROCEDURE DIAGNOSIS: Intrauterine at 36w5d SROM GBS negative RH positive POSTPROCEDURE DIAGNOSIS: Intrauterine at 36w5d, delivered Same as preprocedure Baby 1: gender: Male Presentation: vertex Position: Left Occiput Posterior Placenta delivery description: Spontaneous Cord Vessel Description: 3 Vessels score (1 min): 6 score (5 min): 9 weight: 6 lb 10.915 oz Plan for aftercare: Routine care
--- NOTE | 2021-07-22 13:21 | P.DS_ITS ---
Discharge Providers Provider Date of admission: 07/21/21 01:47 Discharge Date: 07/22/21 Consults: 07/22/21 09:27 Consult to Sheet Metal Superintendent Routine Comment: Discharge provider: Socorro Jennings MD Summary Hospital Course Date Patient Seen: 07/22/21 Time Patient Seen: 07:45 Diagnoses: Intrauterine at 36w5d SROM GBS negative RH positive Hospital Course: The pt presented in active labor with SROM at home. She received an epidural for pain control. She progressed to complete and had a spontaneous vaginal delivery of a viable baby boy on 04/20/22. A first degree perineal laceration was then repaired. , there were no complications. At the time of discharge she was voiding, ambulating, and passing flatus without difficulty. Her lochia was decreasing appropriately. She was pumping with appropriate milk expression. Her pain was adequately controlled. She will f/u in clinic in 6 weeks. She desires OCPs for contraception. Peripartum Data Delivery Method: Natural Vaginal Laceration Description: Perineal - 1st Degree Episiotomy description: None Procedures: Spontaneous vaginal delivery complications: none 1: Gender: Male Disposition of : home Discharge Diagnosis (1) Spontaneous vaginal delivery: Status: Acute Status at Discharge Cognitive/behavioral status at discharge: oriented Functional status at discharge: independent ambulation Overall status at discharge: patient is progressing back to baseline Time Spent with Patient Time attestation: Total time spent providing and/or coordinating discharge services: Objective Labs Result Diagrams: 07/21/21 02:15 Exam Narrative Exam Narrative: Gen: NAD, sitting comfortably in bed, appears well CV: RRR, no murmurs Resp: clear to auscultation bilaterally Abd: soft, appropriately tender, fundus firm and below the umbilicus, nondistended Ext: no edema Discharge Plan Discharge Plan Patient Disposition: Home Discharge orders & Medications Prescriptions: New acetaminophen 325 mg Tablet 650 mg PO Q6HR PRN (Reason: Pain, Mild (1-3)) Qty: 30 0RF docusate sodium 100 mg Capsule 100 mg PO DAILY Qty: 30 0RF ibuprofen 600 mg Tablet 600 mg PO Q6HR PRN (Reason: Pain, Mild (1-3)) Qty: 30 0RF Continued (DME) breast pump Device See Rx Instructions .ROUTE .MEDSUPPLY Qty: 1 0RF Rx Instructions: As directed omeprazole 20 mg capsule,delayed release(DR/EC) 20 mg PO DAILY Qty: 90 3RF Brainstrong 33 mg iron- 800 mcg-350 mg Combo Pack 1 pkg PO DAILY 0RF cimetidine 200 mg tablet 200 mg PO .qday Qty: 30 0RF Rx Instructions: give at meals and bedtime Discontinued nitrofurantoin macrocrystal 100 mg capsule 100 mg PO BID Qty: 10 0RF Rx Instructions: must administer with a meal/food nifedipine 10 mg capsule 10 mg PO TID PRN (Reason: contractions) Qty: 30 0RF ondansetron 4 mg tablet,disintegrating 4 mg PO Q6H PRN (Reason: nausea and vomiting) Qty: 10 0RF Follow up/Referrals: Socorro Jennings MD [Physician] - 6 Weeks (Pt will call for a [address] Jennings) Diet/Activity/Treatments Diet: Diet as Tolerated and Regular Skin/Wound/Dressing Care Report to your healthcare provider any signs of infection, such as:: chills, fever, increased pain and unusual drainage Visit Report/Discharge Packet Instructions: DI for Labor and Delivery, Vaginal Stand Alone Forms: Discharge: Care Visit Report Forms: Patient Portal/API, Stroke Signs & Symptoms
[2021-07-22 13:37] VITALS: BP 99/67; PULSE 69; RESP 17; TEMP 36.6
== END 2021-07-22 13:00 | disposition home or self-care (01) | DRG 807 ==
PROVIDERS: Admitting Provider Family Medicine; Referring Provider Family Medicine; Visit Provider Family Medicine
DX: O60.14X0 Preterm labor third trimester with preterm delivery third trimester, not applicable or unspecified (principal); Z37.0 Single live birth; Z3A.36 36 weeks gestation of pregnancy; O70.0 First degree perineal laceration during delivery; O76 Abnormality in fetal heart rate and rhythm complicating labor and delivery; Z20.822 Contact with and (suspected) exposure to COVID-19
CPT/HCPCS: 59050; 59400; 85025; 86850; 86900; 86901; 87635; C9803; G0379; J3010

== ENCOUNTER 2021-11-24 11:15 | Outpatient (RCR) | payer OTHER, SELFPAY ==
--- NOTE | 2021-11-12 16:34 | PT.OPPOC ---
Physical, Occupational & Speech Therapy At [facility] Current Diagnoses Other specified disorders of muscle (11/12/21) Unspecified urinary incontinence (11/12/21) Visit Care Team Role Provider Type Socorro Jennings MD Attending Provider Physician Family Provider Primary Care Provider Referring Provider Specialty: Family Practice Address: [address] [place] [address], [facility] Email: [email or web address] Plan Of Care PT-OP-T Assessment and Plan Start: 11/04/21 14:04 Freq: Status: Active Protocol: Document 11/12/21 13:45 AMB (Rec: 11/13/21 08:18 AMB [id number]) Physical Therapy Assessment Rehab Potential Rehabilitation Potential Good Evaluation Complexity Number of Personal Factors/Comorbidities 0 Number of Body Systems Impaired 1-2 Clinical Presentation at Evaluation Stable Impairments Impairments Pain,Strength Goals Three Impairment Strength Short Term Goal (STG) Laura will contract her pelvic floor muscles for 5 seconds without breath holding or using her abdominals. STG Duration 4 weeks Halfway Goal (LTG) Laura will contract her pelivic floor muscles while moving from sit to stand. LTG Duration 8 weeks Two Impairment Pain Short Term Goal (STG) Laura will move from sit to stand without pelvic floor pain. STG Duration 4 weeks Creche Attendant Goal (LTG) Laura will engage in the intercourse of her choice without an increase in baseline pain. LTG Duration 8 weeks One Impairment Continence Short Term Goal (STG) Laura will move from sit to stand without leaking. Assessment Summary Assessment Laura attends physical therapy with her biggest concern being pain at the 12 oclock position of her pelvic floor, she describes it as close to her clitoris. She has this pain intermittently, sometimes with sit to stand, but not all the time. During evaluation she did have sensitivity over her scar, and was especially weak in her pelvic floor, with difficulty initiating contraction and unable to maintain contraction. She will benefit from physical therapy for manual therapy to manage her pain as well as instruction in appropriate strengthening to reduce her intermittent incontinence. Physical Therapy Plan Frequency and Duration Frequency of Treatment 1x/Week Duration of Treatment 10 weeks Plan of Care Start Date 11/12/21 Plan of Care End Date 01/21/22 Therapeutic Interventions Therapeutic Interventions Gait Training,Home Exercise Program,Joint Mobilizations, Manual Therapy,Neuromuscular Re-education,Self-Care/Home Management,Soft Tissue Mobilization,Therapeutic Activities,Therapeutic Exercises Modalities Biofeedback,Cold Pack/Ice Massage,Electric Stimulation, Hot Packs Next Visit Focus/Plan Next Note Type Treatment Note Next Visit Plan biofeedback vs NMES, re- evaluate how scar massage is tolerated Plan of Care Dates Plan of Care Start Date 11/12/21 Plan of Care End Date 01/21/22 Electronically Signed by: Radha Hilton, PT 11/13/21 5223 If you are in agreement with this Plan of Care, please return a signed and dated copy. I have reviewed this Plan of Care and certify that the skilled therapy services above are required to meet the patient?s needs. Physician Signature Date Printed Name and Credentials Clinical Instructor Signature Printed Name and Credentials
--- NOTE | 2021-11-12 16:34 | PT.OIE ---
Current Diagnoses Other specified disorders of muscle (11/12/21) Unspecified urinary incontinence (11/12/21) Past Medical History (Last Updated 07/22/21 @ 17:04 by Socorro Jennings MD) Anxiety (~2017) Chronic GERD (~2010) Frequent headaches (~12/2020) H/O hemorrhoidectomy (~06/2019) Hemorrhoid (~2018) History of colonoscopy (~08/2019) History of esophagogastroduodenoscopy (EGD) (~08/2019) Spontaneous vaginal delivery [place] teeth extracted (~2017) Past Surgical History (Last Reviewed 05/10/21 @ 15:55 by Chris Joseph MD) Anesthesia H/O hemorrhoidectomy (~06/2019) History of colonoscopy (~08/2019) History of esophagogastroduodenoscopy (EGD) (~08/2019) [place] teeth extracted (~2017) Visit Care Team Role Provider Type Socorro Jennings MD Attending Provider Physician Family Provider Primary Care Provider Referring Provider Specialty: Family Practice Address: [address] [place] [address] Email: [email or web address] Physical Therapy Initial Evaluation PT-OP-A Visit Information Start: 11/04/21 14:04 Freq: Status: Active Protocol: Document 11/12/21 13:45 AMB (Rec: 11/12/21 16:26 AMB [id number]) Out-Patient Physical Therapy Visit Information Visit Information Visit Type Initial Evaluation Visit Start Time 13:45 Visit Stop Time 14:30 Total Visit Minutes 45 Visit Number 1 PT-OP-B Current Condition Start: 11/04/21 14:04 Freq: Status: Active Protocol: Document 11/12/21 13:59 AMB (Rec: 11/12/21 14:39 AMB [id number]) Current Condition History of Current Condition Onset Date 4 months ago Current Complaints Pain and urinary incontinence History of Current Condition Incontinence during intercourse and with moving from sit to stand. 2x/day. Had returned to the gym and didn't notice leaking with that. 12oclock position intercourse, sit to stand causes pain. Denies prolonged pushing or instrument assistance. Did have a small perineal tear, but not over area where she has pain, but did notice pain at doctors office when doctor palpated. Treatment Goals Patient/Caregiver Goals Reduce anterior pelvic floor pain Personal Factors Other Personal Factors That May Effect prior hemorrhoidectomy Therapy/Recovery PT-OP-C Subjective Start: 11/04/21 14:04 Freq: Status: Active Protocol: Document 11/12/21 13:45 AMB (Rec: 11/12/21 16:26 AMB [id number]) Patient Questionnaires Pelvic Pain and Urgency/Frequency Patient Symptom Scale Pelvic Pain Score 11 PT-OP-I Pelvic Floor Start: 11/04/21 14:04 Freq: Status: Active Protocol: Document 11/12/21 13:45 AMB (Rec: 11/12/21 16:26 AMB [id number]) Pelvic Floor Assessment Urine Pelvic Floor Surgery No Urinary Symptoms Pain Other Urinary Symptoms pain both over perineal scar and 12 oclock Leakage Size Small Other Leakage Causes sit to stand, intercourse Leaks Per Day 2 Voiding Frequency 6/day Nocturia 1 Urine Pad Type Panty Liner Pelvic Clock Pelvic Clock 12-3 Tenderness Pelvic Clock 3-6 Tenderness Pelvic Clock 6-9 Tenderness Pelvic Clock 9-12 Tenderness Pelvic Clock Other pain over pelvic clock, no pain at labia majora or minora or over urethra Prolapse Prolapse Comments none visualized Perineal Descent Resting Absent Bearing Absent Contraction Ability Voluntary Contraction Weak Voluntary Relaxation Weak Manual Muscle Testing Left 1 Manual Muscle Testing Right 1 Manual Muscle Testing Anterior 1 Manual Muscle Testing Posterior 2 Muscle Endurance (Seconds) 1 Number of Quick Contractions In 10 2 Seconds PT-OP-Q Treatments Start: 11/04/21 14:04 Freq: Status: Active Protocol: Document 11/12/21 16:26 AMB (Rec: 11/12/21 16:26 AMB [id number]) Therapeutic Exercises Supine Exercises 1 Supine Exercise Name quick flicks Self-Care/Home Management Treatment Education Other Education dispensed small dilator, instructed in perineal scar massage with finger/thumb/ dilator PT-OP-T Assessment and Plan Start: 11/04/21 14:04 Freq: Status: Active Protocol: Document 11/12/21 13:45 AMB (Rec: 11/13/21 08:18 AMB [id number]) Physical Therapy Assessment Rehab Potential Rehabilitation Potential Good Evaluation Complexity Number of Personal Factors/Comorbidities 0 Number of Body Systems Impaired 1-2 Clinical Presentation at Evaluation Stable Impairments Impairments Pain,Strength Goals Three Impairment Strength Short Term Goal (STG) Laura will contract her pelvic floor muscles for 5 seconds without breath holding or using her abdominals. STG Duration 4 weeks Alf Goal (LTG) Laura will contract her pelivic floor muscles while moving from sit to stand. LTG Duration 8 weeks Two Impairment Pain Short Term Goal (STG) Laura will move from sit to stand without pelvic floor pain. STG Duration 4 weeks Alf Goal (LTG) Laura will engage in the intercourse of her choice without an increase in baseline pain. LTG Duration 8 weeks One Impairment Continence Short Term Goal (STG) Laura will move from sit to stand without leaking. Assessment Summary Assessment Laura attends physical therapy with her biggest concern being pain at the 12 oclock position of her pelvic floor, she describes it as close to her clitoris. She has this pain interittantly, sometimes with sit to stand, but not all the time. During evaluation she did have sensitivity over her scar, and was especially weak in her pelvic floor, with difficulty initiating contraction and unable to maintain contraction. She will benefit from physical therapy for manual therapy to manage her pain as well as instruction in appropriate strengthening to reduce her intermittent incontinence. Physical Therapy Plan Frequency and Duration Frequency of Treatment 1x/Week Duration of Treatment 10 weeks Plan of Care Start Date 11/12/21 Plan of Care End Date 01/21/22 Therapeutic Interventions Therapeutic Interventions Gait Training,Home Exercise Program,Joint Mobilizations, Manual Therapy,Neuromuscular Re-education,Self-Care/Home Management,Soft Tissue Mobilization,Therapeutic Activities,Therapeutic Exercises Modalities Biofeedback,Cold Pack/Ice Massage,Electric Stimulation, Hot Packs Next Visit Focus/Plan Next Note Type Treatment Note Next Visit Plan biofeedback vs NMES, re- evaluate how scar massage is tolerated
--- NOTE | 2021-11-17 12:00 | PT.OTN ---
Current Diagnoses Other specified disorders of muscle (11/17/21) Unspecified urinary incontinence (11/17/21) Physical Therapy Treatment Note PT-OP-A Visit Information Start: 11/04/21 14:04 Freq: Status: Active Protocol: Document 11/17/21 11:15 AMB (Rec: 11/21/21 08:43 AMB [id number]) Out-Patient Physical Therapy Visit Information Visit Information Visit Type Treatment Note Visit Start Time 11:15 Visit Stop Time 12:00 Total Visit Minutes 45 Visit Number 2 PT-OP-B Current Condition Start: 11/04/21 14:04 Freq: Status: Active Protocol: Document 11/12/21 13:59 AMB (Rec: 11/12/21 14:39 AMB [id number]) Current Condition History of Current Condition Onset Date 4 months ago Current Complaints Pain and urinary incontinence History of Current Condition Incontinence during intercourse and with moving from sit to stand. 2x/day. Had returned to the gym and didn't notice leaking with that. 12oclock position intercourse, sit to stand causes pain. Denies prolonged pushing or instrument assistance. Did have a small perineal tear, but not over area where she has pain, but did notice pain at doctors office when doctor palpated. Treatment Goals Patient/Caregiver Goals Reduce anterior pelvic floor pain Personal Factors Other Personal Factors That May Effect prior hemorrhoidectomy Therapy/Recovery PT-OP-C Subjective Start: 11/04/21 14:04 Freq: Status: Active Protocol: Document 11/17/21 11:15 AMB (Rec: 11/21/21 08:43 AMB [id number]) OP-PT Subjective Patient Comments Patient Comments Laura tried the dilator, felt pressure wiht it, but it was ok, trying to do exercises at home. PT-OP-I Pelvic Floor Start: 11/04/21 14:04 Freq: Status: Active Protocol: Document 11/12/21 13:45 AMB (Rec: 11/12/21 16:26 AMB [id number]) Pelvic Floor Assessment Urine Pelvic Floor Surgery No Urinary Symptoms Pain Other Urinary Symptoms pain both over perineal scar and 12 oclock Leakage Size Small Other Leakage Causes sit to stand, intercourse Leaks Per Day 2 Voiding Frequency 6/day Nocturia 1 Urine Pad Type Panty Liner Pelvic Clock Pelvic Clock 12-3 Tenderness Pelvic Clock 3-6 Tenderness Pelvic Clock 6-9 Tenderness Pelvic Clock 9-12 Tenderness Pelvic Clock Other pain over pelvic clock, no pain at labia majora or minora or over urethra Prolapse Prolapse Comments none visualized Perineal Descent Resting Absent Bearing Absent Contraction Ability Voluntary Contraction Weak Voluntary Relaxation Weak Manual Muscle Testing Left 1 Manual Muscle Testing Right 1 Manual Muscle Testing Anterior 1 Manual Muscle Testing Posterior 2 Muscle Endurance (Seconds) 1 Number of Quick Contractions In 10 2 Seconds PT-OP-Q Treatments Start: 11/04/21 14:04 Freq: Status: Active Protocol: Document 11/17/21 11:15 AMB (Rec: 11/21/21 08:43 AMB [id number]) Therapeutic Exercises Sitting Exercises quick flicks and long holds Reps/Minutes 10 min Comments feeling perineum lift of chair Neuro Re-Education Treatment Other Activities sEMG Comments see assessment section, with work to relax, let go lengthen during relaxation PT-OP-T Assessment and Plan Start: 11/04/21 14:04 Freq: Status: Active Protocol: Document 11/17/21 10:46 AMB (Rec: 11/17/21 12:30 AMB [id number]) Physical Therapy Assessment Goals Three Impairment Strength Short Term Goal (STG) Laura will contract her pelvic floor muscles for 5 seconds without breath holding or using her abdominals. STG Duration 4 weeks Custodial Goal (LTG) Laura will contract her pelivic floor muscles while moving from sit to stand. LTG Duration 8 weeks Two Impairment Pain Short Term Goal (STG) Laura will move from sit to stand without pelvic floor pain. STG Duration 4 weeks Custodial Goal (LTG) Laura will engage in the intercourse of her choice without an increase in baseline pain. LTG Duration 8 weeks One Impairment Continence Short Term Goal (STG) Laura will move from sit to stand without leaking. STG Duration 4 weeks Assessment Summary Assessment AVg 8, baseline 5, max 13 quick flicks. Long holds max 16 avg 10 on sEMG. Laura did well wiht biofeedback, but had a hard time relaxing and getting baseline down to a resting level. Physical Therapy Plan Next Visit Focus/Plan Next Note Type Treatment Note Next Visit Plan biofeedback vs NMES, re- evaluate how scar massage is tolerated
--- NOTE | 2021-11-24 12:58 | PT.OTN ---
Current Diagnoses Other specified disorders of muscle (11/24/21) Unspecified urinary incontinence (11/24/21) Physical Therapy Treatment Note PT-OP-A Visit Information Start: 11/04/21 14:04 Freq: Status: Active Protocol: Document 11/24/21 11:20 AMB (Rec: 11/24/21 11:58 AMB [id number]) Out-Patient Physical Therapy Visit Information Visit Information Visit Type Treatment Note Visit Start Time 11:15 Visit Stop Time 12:00 Total Visit Minutes 45 Visit Number 3 PT-OP-B Current Condition Start: 11/04/21 14:04 Freq: Status: Active Protocol: Document 11/12/21 13:59 AMB (Rec: 11/12/21 14:39 AMB [id number]) Current Condition History of Current Condition Onset Date 4 months ago Current Complaints Pain and urinary incontinence History of Current Condition Incontinence during intercourse and with moving from sit to stand. 2x/day. Had returned to the gym and didn't notice leaking with that. 12oclock position intercourse, sit to stand causes pain. Denies prolonged pushing or instrument assistance. Did have a small perineal tear, but not over area where she has pain, but did notice pain at doctors office when doctor palpated. 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 Did have a lot of sacral pressure during and post and that had improved but is now coming back. PT-OP-I Pelvic Floor Start: 11/04/21 14:04 Freq: Status: Active Protocol: Document 11/12/21 13:45 AMB (Rec: 11/12/21 16:26 AMB [id number]) Pelvic Floor Assessment Urine Pelvic Floor Surgery No Urinary Symptoms Pain Other Urinary Symptoms pain both over perineal scar and 12 oclock Leakage Size Small Other Leakage Causes sit to stand, intercourse Leaks Per Day 2 Voiding Frequency 6/day Nocturia 1 Urine Pad Type Panty Liner Pelvic Clock Pelvic Clock 12-3 Tenderness Pelvic Clock 3-6 Tenderness Pelvic Clock 6-9 Tenderness Pelvic Clock 9-12 Tenderness Pelvic Clock Other pain over pelvic clock, no pain at labia majora or minora or over urethra Prolapse Prolapse Comments none visualized Perineal Descent Resting Absent Bearing Absent Contraction Ability Voluntary Contraction Weak Voluntary Relaxation Weak Manual Muscle Testing Left 1 Manual Muscle Testing Right 1 Manual Muscle Testing Anterior 1 Manual Muscle Testing Posterior 2 Muscle Endurance (Seconds) 1 Number of Quick Contractions In 10 2 Seconds PT-OP-Q Treatments Start: 11/04/21 14:04 Freq: Status: Active Protocol: Document 11/24/21 12:38 AMB (Rec: 11/24/21 12:58 AMB [id number]) Manual Therapy Treatment Soft Tissue Mobilization levator ani Body Location Left levator, scar tissue Mobilization Type Myofascial Release,Sustained Pressure,Trigger Point Release Intensity/Depth Moderate Body Position Hooklying Comments Increased tone, pain on L>R Taping 1 Body Location sacrum Type of Tape Kinesio Tape Comments X over sacrum PT-OP-T Assessment and Plan Start: 11/04/21 14:04 Freq: Status: Active Protocol: Document 11/24/21 12:38 AMB (Rec: 11/24/21 12:58 AMB [id number]) Physical Therapy Assessment Goals Three Impairment Strength Short Term Goal (STG) Laura will contract her pelvic floor muscles for 5 seconds without breath holding or using her abdominals. STG Duration 4 weeks Custodial Goal (LTG) Laura will contract her pelivic floor muscles while moving from sit to stand. LTG Duration 8 weeks Two Impairment Pain Short Term Goal (STG) Laura will move from sit to stand without pelvic floor pain. STG Duration 4 weeks Area Director Goal (LTG) Laura will engage in the intercourse of her choice without an increase in baseline pain. LTG Duration 8 weeks One Impairment Continence Short Term Goal (STG) Laura will move from sit to stand without leaking. STG Duration 4 weeks Assessment Summary Assessment Educated Laura that pelvic floor could be spasming due to increased low back/sacrum dysfunction which had been better but is now returning. Recommend brace/ exercise for abdominal low back control to allow pelvic floor to relax more. Physical Therapy Plan Next Visit Focus/Plan Next Note Type Treatment Note Next Visit Plan Reassess tension/pain/tone. Pain over sacrum/coccyx
--- NOTE | 2022-01-29 15:53 | PT.OPDS ---
Current Diagnoses Other specified disorders of muscle (11/24/21) Unspecified urinary incontinence (11/24/21) Visit Care Team Role Provider Type Socorro Jennings MD Attending Provider Physician Family Provider Primary Care Provider Referring Provider Specialty: Family Practice Address: [address] [place] [address], [facility] [place], [address] Email: [email or web address] Visit Number Visit Number 3 Discharge Summary PT-OP-B Current Condition Start: 11/04/21 14:04 Freq: Status: Active Protocol: Document 11/12/21 13:59 AMB (Rec: 11/12/21 14:39 AMB [id number]) Current Condition History of Current Condition Onset Date 4 months ago Current Complaints Pain and urinary incontinence History of Current Condition Incontinence during intercourse and with moving from sit to stand. 2x/day. Had returned to the gym and didn't notice leaking with that. 12oclock position intercourse, sit to stand causes pain. Denies prolonged pushing or instrument assistance. Did have a small perineal tear, but not over area where she has pain, but did notice pain at doctors office when doctor palpated. 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 Did have a lot of sacral pressure during and post and that had improved but is now coming back. PT-OP-I Pelvic Floor Start: 11/04/21 14:04 Freq: Status: Active Protocol: Document 11/12/21 13:45 AMB (Rec: 11/12/21 16:26 AMB [id number]) Pelvic Floor Assessment Urine Pelvic Floor Surgery No Urinary Symptoms Pain Other Urinary Symptoms pain both over perineal scar and 12 oclock Leakage Size Small Other Leakage Causes sit to stand, intercourse Leaks Per Day 2 Voiding Frequency 6/day Nocturia 1 Urine Pad Type Panty Liner Pelvic Clock Pelvic Clock 12-3 Tenderness Pelvic Clock 3-6 Tenderness Pelvic Clock 6-9 Tenderness Pelvic Clock 9-12 Tenderness Pelvic Clock Other pain over pelvic clock, no pain at labia majora or minora or over urethra Prolapse Prolapse Comments none visualized Perineal Descent Resting Absent Bearing Absent Contraction Ability Voluntary Contraction Weak Voluntary Relaxation Weak Manual Muscle Testing Left 1 Manual Muscle Testing Right 1 Manual Muscle Testing Anterior 1 Manual Muscle Testing Posterior 2 Muscle Endurance (Seconds) 1 Number of Quick Contractions In 10 2 Seconds PT-OP-T Assessment and Plan Start: 11/04/21 14:04 Freq: Status: Active Protocol: Document 01/29/22 15:51 AMB (Rec: 01/29/22 15:53 AMB [id number]) Physical Therapy Assessment Goals Three Impairment Strength Short Term Goal (STG) Laura will contract her pelvic floor muscles for 5 seconds without breath holding or using her abdominals. STG Duration 4 weeks Photo Colorer Goal (LTG) Laura will contract her pelivic floor muscles while moving from sit to stand. LTG Duration 8 weeks Two Impairment Pain Short Term Goal (STG) Laura will move from sit to stand without pelvic floor pain. STG Duration 4 weeks Photo Colorer Goal (LTG) Laura will engage in the intercourse of her choice without an increase in baseline pain. LTG Duration 8 weeks One Impairment Continence Short Term Goal (STG) Laura will move from sit to stand without leaking. STG Duration 4 weeks Assessment Summary Assessment Pt canceled her last scheduled appointment and has not called the clinic to schedule anything further. That was two months ago, she is therefore discharged. she had not met her goals at her last visit (3rd including eval) Physical Therapy Plan Discharge Physical Therapy Discharge Reasons No Longer Attending PT
== END 2022-02-02 14:39 ==
LOC: PHYS 11:15
PROVIDERS: Family Provider Family Medicine; PCP Family Medicine; Referring Provider Family Medicine; Visit Provider Family Medicine
DX: R32 Unspecified urinary incontinence (principal); M62.89 Other specified disorders of muscle
CPT/HCPCS: 97110; 97112; 97140; 97161

== ENCOUNTER → 2022-04-17 11:02 | Outpatient (CLI) | payer OTHER, SELFPAY | PROVIDERS: Family Provider Family Medicine; PCP Family Medicine; Visit Provider Student in an Organized Health Care Education/Training Program | DX: L02.91 Cutaneous abscess, unspecified (principal) | CPT/HCPCS: 87070; 87077; 87186; 87205 ==

== ENCOUNTER → 2023-04-21 12:12 | Outpatient (CLI) | payer OTHER, SELFPAY ==
[2023-04-21 13:27] LABS: Add Manual Diff / Slide Review NO; Basophils Absolute Auto 0 /uL (0-100); Basophils Percent Auto 0.7 % (0-2); Eosinophils Absolute Auto 100 /uL (0-450); Eosinophils Percent Auto 1.7 % (2-4); Hematocrit 38.6 % (36-46); Hemoglobin 12.9 g/dL (12.0-16.0); Lymphocytes Absolute Auto 1600 /uL (1100-4500); Lymphocytes Percent Auto 25.3 % (25-40); Mean Corpuscular HGB Conc 33.5 % (30-36); Mean Corpuscular Hemoglobin 29.8 PG (26-34); Mean Corpuscular Volume 88.9 fL (80-100); Monocytes Absolute Auto 500 /uL (0-900); Neutrophils Absolute Auto 4100 /uL (1500-7000); Neutrophils Percent Auto 64.3 % (50-75); Platelet Count 146 X10^3/uL (150-400); Red Blood Cell Count 4.34 X10^6/uL (4.0-5.2); Red Cell Distribution Width 12.8 % (11.6-14.8); White Blood Cell Count 6.4 X10^3/uL (4.5-11.0)
[2023-04-21 13:57] LABS: HEMOLYSIS < 15 (0-50); Iron 81 ug/dL (37-170)
[2023-04-21 14:00] LABS: Alanine Aminotransferase 15 IU/L (<35); Albumin 4.5 g/dL (3.5-5.0); Albumin Globulin Ratio 1.6 (1.0-2.8); Alkaline Phosphatase 42 U/L (38-126); Aspartate Aminotransferase 28 IU/L (14-36); BUN Creatinine Ratio 20.3 (6-22); Bilirubin Total 0.3 mg/dL (0.2-1.3); Blood Urea Nitrogen 14 mg/dL (7-17); Calcium 9.4 mg/dL (8.4-10.2); Carbon Dioxide 25 mmol/L (22-32); Chloride 101 mmol/L (98-107); Estimated Glomerular Filt Rate > 60 mL/min (>60); Globulin 2.8 g/dL (1.7-4.1); Glucose 83 mg/dL (70-100); HEMOLYSIS < 15 (0-50); Potassium 4.2 mmol/L (3.4-5.1); Sodium 135 mmol/L (137-145); Total Protein 7.3 g/dL (6.3-8.2)
[2023-04-21 14:08] LABS: Percent Iron Saturation 21 % (15-50); Total Iron Binding Capacity 381 ug/dL (265-497); Transferrin 266 mg/dL (206-381)
[2023-04-21 14:14] LABS: HCG Quantitative /Beta subunit 29.7 mIU/mL
[2023-04-21 14:32] LABS: Ferritin 26 ng/mL (6-137)
[2023-04-21 14:47] LABS: Vitamin B12 838 pg/mL (239-931)
== END ==
PROVIDERS: Family Provider Family Medicine; PCP Family Medicine; Referring Provider Physician Assistant; Visit Provider Physician Assistant
DX: R53.83 Other fatigue (principal); N91.2 Amenorrhea, unspecified; Z86.2 Personal history of diseases of the blood and blood-forming organs and certain disorders involving the immune mechanism
CPT/HCPCS: 36415; 80053; 82607; 82728; 83540; 83550; 84443; 84702; 85025